=== PATIENT | male | born 2005 | race African-American/Black ===

== ENCOUNTER 2024-01-08 02:01 | Emergency (ER) | payer MEDICAID, OTHER ==
[~2024-01-08] VITALS: Ht 167.6 cm; Wt 70.0 kg
[2024-01-08 02:11] VITALS: O2SAT 97
[2024-01-08 02:32] VITALS: BP 135/59; PULSE 66; RESP 16; TEMP 98.2; O2SAT 100
== END 2024-01-08 04:06 | disposition left against medical advice (07) ==
LOC: ER 02:01
DX: M79.602 Pain in left arm (principal); Z53.21 Procedure and treatment not carried out due to patient leaving prior to being seen by health care provider